=== PATIENT | female | born 1975 | race Caucasian/White ===

== ENCOUNTER 2017-05-03 21:34 | Emergency (ER) | payer OTHER ==
[~2017-05-03] VITALS: Ht 162.6 cm; Wt 75.0 kg
[2017-05-03 21:35] VITALS: BP 136/67; PULSE 94; RESP 16; TEMP 98.5; O2SAT 98
[2017-05-03] MEDS ORDERED: LORA-392 PO (21:49)
[2017-05-03] MEDS ORDERED: AMBI5TAB PO (21:49)
--- NOTE | 2017-05-03 21:49 | PD ---
Physical Exam Date Seen by Provider: May 03, 2017 Time Seen by Provider: 21:46 Narrative 42-year-old white female presents to emergency department for evaluation of left adnexal pain. Patient states that she is unsure whether she is having ovarian cyst. Patient's had a history of a right ectopic with a right salpingo-oophorectomy. Patient states the pain is moderate to moderate-to -severe. There is no alleviating or exacerbating activities. No vaginal discharge. Last menstrual periods started yesterday. Vital signs reviewed. Pt waiting for bed placement. Data Data Last Documented VS Vital Signs Date Time Temp Pulse Resp B/P (MAP) Pulse Ox O2 Delivery O2 Flow Rate FiO2 05/03/17 21:35 98.5 94 16 136/67 (90) 98 Room Air [facility] Medical Record Reviewed: No Supervised Visit with IVAN: Madhav Pichardo May 03, 2017 21:49
--- NOTE | 2017-05-03 22:29 | PD ---
HPI Chief Complaint: Rv Repair Technician Problem/Complaint Time Seen by Provider: 22:34 Travel History International Travel<30 days: No Contact w/Intl Traveler<30days: No Traveled to known affect area: No History of Present Illness HPI C/O LEFT ADNEXAL REGION PAIN FOR 12HRS OR SO, 02/10, NONRADIATING, GIVES H/O A PRIOR ECTOPIC ON RIGHT SIDE WITH SALPINGECTOMY. PATIENT HAS NO ALLEVIATING/ AGGRAVATING FACTORS. ALSO DENIES ASSOC SYMPTOMS SUCH QUINTERO/CP/N/V/D/FEVER/COUGH/ RUNNY NOSE/NO URINARY. CHART AND RN NOTES REVIEWED PMHX: DENIES PSHX: RIGHT ECTOPIC WITH SALPINGECTOMY DUE TO RUPTURED ECTOPIC PFSH Past Medical History ?: Not LMP: CURRENT Social History Tobacco Use: No Allergies-Medications (Allergen,Severity, Reaction): Coded Allergies: ciprofloxacin (Verified Allergy, Severe, "KIDNEY FAILURE", 05/03/17) Reported Meds & Prescriptions Reported Meds & Active Scripts Active Fioricet-Codeine (Zciabhytad-Qxjbcupeubuso-Ymazghou-Codeine) 89-187-23-30 Mg Cap 1-2 Cap PO Q4H PRN Do not exceed 6 capsules/day. Reported Ativan (Lorazepam) 0.5 Mg Tab 0.5 Mg PO DAILY PRN Ambien (Zolpidem Tartrate) 5 Mg Tab 5 Mg PO HS PRN Review of Systems Except as stated in HPI: all other systems reviewed are Neg General / Constitutional: No: Fever Eyes: No: Visual changes HENT: No: Headaches Cardiovascular: No: Chest Pain or Discomfort Respiratory: No: Shortness of Breath Gastrointestinal: No: Abdominal Pain Genitourinary: Positive: Pelvic Pain Musculoskeletal: No: Pain Skin: No Rash Neurologic: No: Weakness Psychiatric: No: Depression Endocrine: No: Polydipsia Hematologic/Lymphatic: No: Easy Bruising Physical Exam Narrative GENERAL: SKIN: Warm and dry. HEAD: Atraumatic. Normocephalic. EYES: Pupils equal and round. No scleral icterus. No injection or drainage. ENT: No nasal bleeding or discharge. Mucous membranes pink and moist. NECK: Trachea midline. No JVD. CARDIOVASCULAR: Regular rate and rhythm. RESPIRATORY: No accessory muscle use. Clear to auscultation. Breath sounds equal bilaterally. GASTROINTESTINAL: Abdomen soft, non-tender, nondistended....LEFT ADNEXAL TT PERCUSSION AND PALPATION MUSCULOSKELETAL: Extremities without clubbing, cyanosis, or edema. No obvious deformities. NEUROLOGICAL: Awake and alert. No obvious cranial nerve deficits. Motor grossly within normal limits. Five out of 5 muscle strength in the arms and legs. Normal speech. PSYCHIATRIC: Appropriate mood and affect; insight and judgment normal. Data Data Last Documented VS Vital Signs Date Time Temp Pulse Resp B/P (MAP) Pulse Ox O2 Delivery O2 Flow Rate FiO2 05/04/17 01:48 18 05/04/17 01:34 75 05/04/17 01:34 05/03/17 21:35 98.5 98 Room Air Orders Orders Complete Blood Count With Diff (05/03/17 22:34) Comprehensive Metabolic Panel (05/03/17 22:34) Urinalysis - C+S If Indicated (05/03/17 22:34) Ed Urine Pregnancytest Poc (05/03/17 22:34) Ct Abd/Pel W/O Iv Contrast (05/03/17 22:34) Ecg Monitoring (05/03/17 22:34) Iv Access Insert/Monitor (05/03/17 22:34) Morphine Inj (Morphine Inj) (05/03/17 22:45) Ondansetron Inj (Zofran Inj) (05/03/17 22:45) Sodium Chlor 0.9% 1000 Ml Inj (Ns 1000 M (05/03/17 22:34) Us Pelvis Comp W Transvaginal (05/03/17 23:47) Ed Discharge Order (05/04/17 01:02) Ketorolac Inj (Toradol Inj) (05/04/17 01:15) Labs Laboratory Tests Test 05/03/17 23:06 White Blood Count 5.6 TH/MM3 Red Blood Count 4.67 MIL/MM3 Hemoglobin 11.4 GM/DL Hematocrit 35.5 % Mean Corpuscular Volume 76.1 FL Mean Corpuscular Hemoglobin 24.5 PG Mean Corpuscular Hemoglobin Concent 32.2 % Red Cell Distribution Width 16.1 % Platelet Count 184 TH/MM3 Mean Platelet Volume 9.1 FL Neutrophils (%) (Auto) 75.2 % Lymphocytes (%) (Auto) 17.6 % Monocytes (%) (Auto) 6.5 % Eosinophils (%) (Auto) 0.6 % Basophils (%) (Auto) 0.1 % Neutrophils # (Auto) 4.2 TH/MM3 Lymphocytes # (Auto) 1.0 TH/MM3 Monocytes # (Auto) 0.4 TH/MM3 Eosinophils # (Auto) 0.0 TH/MM3 Basophils # (Auto) 0.0 TH/MM3 CBC Comment DIFF FINAL Differential Comment Urine Color YELLOW Urine Turbidity HAZY Urine pH 5.0 Urine Specific [place] 1.032 Urine Protein TRACE mg/dL Urine Glucose (UA) NEG mg/dL Urine Ketones NEG mg/dL Urine Occult Blood MOD Urine Nitrite NEG Urine Bilirubin NEG Urine Urobilinogen LESS THAN 2.0 MG/DL Urine Leukocyte Esterase TRACE Urine RBC 3 /hpf Urine WBC 3 /hpf Urine Squamous Epithelial Cells 2 /hpf Urine Calcium Oxalate Crystals FEW /hpf Urine Amorphous Sediment RARE Urine Mucus FEW /lpf Microscopic Urinalysis Comment CULT NOT INDICATED Blood Urea Nitrogen 13 MG/DL Creatinine 0.59 MG/DL Random Glucose 90 MG/DL Total Protein 7.1 GM/DL Albumin 4.1 GM/DL Calcium Level 9.0 MG/DL Alkaline Phosphatase 97 U/L Aspartate Amino Transf (AST/SGOT) 15 U/L Alanine Aminotransferase (ALT/SGPT) 27 U/L Total Bilirubin 0.8 MG/DL Sodium Level 138 MEQ/L Potassium Level 3.7 MEQ/L Chloride Level 105 MEQ/L Carbon Dioxide Level 26.6 MEQ/L Anion Gap 6 MEQ/L Estimat Glomerular Filtration Rate 112 ML/MIN [facility] Medical Decision Making Medical Screen Exam Complete: Yes Emergency Medical Condition: Yes Medical Record Reviewed: Yes Differential Diagnosis OVARIAN CYST V ECTOPIC V OVARIAN TORSION V COLITIS V KIDNEY STONES V DIVERTIC Narrative Course CT IS NEG FOR ANY COLITIS/DIVERTIC, POSITIVE FOR OVARIAN CYST AND NEG FOR KIDNEY STONES, NEG , PATIENT'S ULTRASOUND DID NOT SHOW E/O OVARIAN TORSION/TOA Diagnosis Primary Impression: Left ovarian cyst Additional Instructions: THE PAIN MEIDCATION SHOULD SAY PRN PAIN NOT JUST HEADACHE, IT IS A BUILT IN AUTOMATIC STATEMENT. PLEASE FOLLOW UP WITH YOUR OBGYN FOR FURTHER MEDICAL CARE Scripts Oirnriyqox-Uaithyamxegii-Jmgackqe-Codeine (Fioricet-Codeine) 29-304-61-30 Mg Cap 1-2 CAP PO Q4H Y for HEADACHE, #15 CAP 0 Refills Do not exceed 6 capsules/day. Prov: Lewis Oliva MD 05/04/17 Disposition: 01 DISCHARGE HOME Condition: Stable Lewis Oliva MD May 03, 2017 22:29
[2017-05-03] MEDS ORDERED: SODIUM CHLOR 0.9% 1000 ML INJ 1,000 ML IV ONE (22:34)
[2017-05-03] MEDS ORDERED: MORPHINE SULFATE 4 MG/ML INJ IV PUSH ONE (22:45)
[2017-05-03] MEDS ORDERED: ONDANSETRON HCL 4 MG/2 ML VIAL IV PUSH ONE (22:45)
[2017-05-03 23:47] LABS: AUTOMATED NEUTROPHIL # 4.2 TH/MM3 (1.8-7.7); BASOPHIL % 0.1 % (0.0-2.0); EOSINOPHIL % 0.6 % (0.0-4.0); HEMATOCRIT 35.5 % (35.0-46.0); HEMO FLAGS DIFF FINAL; LYMPH % 17.6 % (9.0-44.0); MEAN CELL VOLUME 76.1 FL (80.0-100.0); MEAN CORPUSCULAR HEMOGLOBIN 24.5 PG (27.0-34.0); MEAN CORPUSCULAR HGB CONC 32.2 % (32.0-36.0); MONO % 6.5 % (0.0-8.0); NEUT % 75.2 % (16.0-70.0); PLATELET COUNT 184 TH/MM3 (150-450); RED BLOOD COUNT 4.67 MIL/MM3 (4.00-5.30); RED CELL DISTRIBUTION WIDTH 16.1 % (11.6-17.2); WHITE BLOOD COUNT 5.6 TH/MM3 (4.0-11.0)
[2017-05-03 23:48] LABS: BLOOD, URINE MOD (NEG); CALCIUM OXALATE CRYSTALS,URINE FEW /hpf; COMMENT (UR) CULT NOT INDICATED; CULTURE IF INDICATED CULT NOT INDICATED; GLUCOSE,URINE NEG (NEG); KETONE, URINE NEG (NEG); MUCUS URINE FEW /lpf (OCC); NITRITE,URINE NEG (NEG); SQUAMOUS EPITHELIAL CELL URINE 2 /hpf (0-5); URINE COLOR YELLOW (YELLW/STRAW)
[2017-05-03 23:59] LABS: ANION GAP 6 MEQ/L (5-15); AST (GOT) 15 U/L (15-37); BICARBONATE 26.6 MEQ/L (21.0-32.0); BLOOD UREA NITROGEN 13 MG/DL (7-18); CHLORIDE 105 MEQ/L (98-107); GLOMERULAR FILTRATION RATE 112 ML/MIN (>89); POTASSIUM 3.7 MEQ/L (3.5-5.1); SODIUM (NA) 138 MEQ/L (136-145)
[2017-05-04] LABS: ALT (GPT) 27 U/L (10-53)
[2017-05-04 00:02] LABS: ALKALINE PHOSPHATASE 97 U/L (45-117); TOTAL BILIRUBIN ADULT 0.8 MG/DL (0.2-1.0)
--- NOTE | 2017-05-04 00:03 | RADRPT ---
EXAM DATE/TIME: 05/03/2017 23:31 [facility] COMPARISON: No previous studies available for comparison. INDICATIONS : Pelvic pain. ORAL CONTRAST: No oral contrast ingested. RADIATION DOSE: 15.32 CTDIvol (mGy) MEDICAL HISTORY : Ovarian cysts. SURGICAL HISTORY : None. ENCOUNTER: Initial ACUITY: 1 day PAIN SCALE: 8/10 LOCATION: pelvis TECHNIQUE: Volumetric scanning of the abdomen and pelvis was performed. Using automated exposure control and ad justment of the mA and/or kV according to patient size, radiation dose was kept as low as reasonably achievable to obtain optimal diagnostic quality images. DICOM format image data is available electro nically for review and comparison. FINDINGS: LOWER LUNGS: The visualized lower lungs are clear. LIVER: There is moderate heterogeneously diminished density in the liver which is likely steatosis. Areas of sparing are present adjacent to the gallbladder fossa. There are a couple of rounded circumscribed a reas of relative hyperattenuation in the dome of the liver measuring 2.9 and 1.2 cm respectively. The se may also be areas of focal fatty sparing, however the location and configuration is atypical. Mass should be considered. There is no evidence of biliary ductal dilatation. SPLEEN: Normal size without lesion. PANCREAS: Within normal limits. KIDNEYS: Normal in size and shape. There is no mass, stone, or hydronephrosis. ADRENAL GLANDS: Within normal limits. VASCULAR: There is no aortic aneurysm. BOWEL/MESENTERY: The stomach, small bowel, and colon demonstrate no acute abnormality. There is no free intraperitone al air or fluid. ABDOMINAL WALL: Within normal limits. RETROPERITONEUM: There is no lymphadenopathy. BLADDER: No wall thickening or mass. REPRODUCTIVE: 2.6 cm left ovarian cyst. No suspicious mass. No free pelvic fluid. INGUINAL: There is no lymphadenopathy or hernia. MUSCULOSKELETAL: Within normal limits for patient age. CONCLUSION: Circumscribed hyper attenuating lesions in the dome of the liver worrisome for masses. Further charac terization with contrasted hepatic MRI is suggested on an outpatient followup basis. Small left ovarian cyst. Zeke Hannon MD on May 03, 2017 at 23:52 Board Certified Radiologist. This report was verified electronically.
[2017-05-04] MEDS ORDERED: BUTA1CAP2 PO (00:34)
--- NOTE | 2017-05-04 00:57 | RADRPT ---
EXAM DATE/TIME: 05/04/2017 00:17 [facility] COMPARISON: CT ABDOMEN & PELVIS W/O CONTRAST, May 03, 2017, 23:31. INDICATIONS : Pelvic pain. MEDICAL HISTORY : Ovarian cysts. SURGICAL HISTORY : Right salpingo-oophorectomy. ENCOUNTER: Initial ACUITY: 1 day PAIN SCORE: 8/10 LOCATION: Bilateral pelvis MEASUREMENTS: UTERUS: 7.4 x 5.2 x 3.8 cm ENDOMETRIAL STRIPE: 5 mm RIGHT OVARY: SURGICALLY ABSENT cm Surgically absent LEFT OVARY: 2.1 x 1.7 x 2.2 cm FINDINGS: UTERUS: The myometrium has homogeneous echotexture without mass. RIGHT OVARY: Surgically absent LEFT OVARY: Slightly greater than 1 cm simple appearing cyst. No suspicious findings. MISCELLANEOUS: No free fluid. CONCLUSION: Unremarkable sonographic appearance of the pelvis. Zeke Hannon MD on May 04, 2017 at 0:52 Board Certified Radiologist. This report was verified electronically.
[2017-05-04] MEDS ORDERED: KETOROLAC TROMETHAMINE 30 MG/ML (IVP) VIAL IV PUSH ONE (01:15)
[2017-05-04 01:48] VITALS: RESP 18
== END 2017-05-04 01:49 | disposition home or self-care (01) ==
LOC: NEPD 21:34
DX: N83.202 Unspecified ovarian cyst, left side (principal)
CPT/HCPCS: 74176; 76830; 76856; 80053; 81001; 84703; 85025; 96361; 96374; 96375; 99285; J1885; J2270; J2405; J7030

== ENCOUNTER 2017-05-15 10:25 | Emergency (ER) | payer OTHER ==
[~2017-05-15] VITALS: Ht 160 cm; Wt 78.0 kg
[~2017-05-15 10:25] MED LIST: AMBI5TAB PO; BUTA1CAP2 PO; LORA-392 PO
[2017-05-15 10:27] VITALS: BP 118/78; PULSE 100; RESP 16; TEMP 98.1; O2SAT 98
[2017-05-15] MEDS ORDERED: SODIUM CHLOR 0.9% 1000 ML INJ 1,000 ML IV ONE (10:45)
[2017-05-15] MEDS ORDERED: SODIUM CHLORIDE 0.9% FLUSH 10 ML FLUSH IVF PRN (10:45)
[2017-05-15] MEDS ORDERED: MORPHINE SULFATE 4 MG/ML INJ IV PUSH ONE (10:45)
[2017-05-15] MEDS ORDERED: ONDANSETRON HCL 4 MG/2 ML VIAL IV PUSH ONE (10:45)
--- NOTE | 2017-05-15 10:53 | PD ---
HPI Chief Complaint: GI Complaint Time Seen by Provider: 10:34 Travel History International Travel<30 days: No Contact w/Intl Traveler<30days: No Traveled to known affect area: No History of Present Illness HPI The patient is a 42-year-old female who presents to the emergency department for diarrhea. The patient states she was recently diagnosed with a left adnexal cyst and possible tumors on her liver. The patient had an outpatient MRI which revealed hemangiomas. The patient states she also had blood work and a urine performed which revealed a UTI. The patient was placed on Augmentin and then developed increasing diarrhea. The patient has had intermittent diarrhea over the last several weeks, however, after she was placed on Augmentin the diarrhea progressed. The patient was then changed to Macrobid after 3 days of Augmentin therapy, however, states she is had approximately 30 episodes of diarrhea since last night. The patient describes the diarrhea as loose, watery, with yellow complexion, no visible blood. The patient denies any recent international travel,, history of HIV, history of cryptosporidium, or history of C. difficile. Symptoms are moderate without any alleviating or exacerbating factors. She does complain of diffuse abdominal pain and cramping but denies any associated nausea or vomiting. The patient states she had a temperature of 100.3 last night. Patient took Tylenol for her fever. PFSH Past Medical History ?: Not LMP: 2 WEEKS AGO Past Surgical History Section: Yes (x2) Tonsillectomy: Yes Social History Alcohol Use: No Tobacco Use: No Substance Use: No Allergies-Medications (Allergen,Severity, Reaction): Coded Allergies: ciprofloxacin (Verified Allergy, Severe, "KIDNEY FAILURE", 05/03/17) Reported Meds & Prescriptions Reported Meds & Active Scripts Active Fioricet-Codeine (Khrxrkxail-Zevexqmkjoyod-Xsnhsded-Codeine) 19-847-04-30 Mg Cap 1-2 Cap PO Q4H PRN Do not exceed 6 capsules/day. Reported Ativan (Lorazepam) 0.5 Mg Tab 0.5 Mg PO DAILY PRN Ambien (Zolpidem Tartrate) 5 Mg Tab 5 Mg PO HS PRN Review of Systems Except as stated in HPI: all other systems reviewed are Neg General / Constitutional: Positive: Fever HENT: No: Lightheadedness Cardiovascular: No: Chest Pain or Discomfort Respiratory: No: Shortness of Breath Gastrointestinal: Positive: Diarrhea, Abdominal Pain, Changes in Bowel Habits, No: Nausea, Vomiting Musculoskeletal: No: Weakness Neurologic: No: Dizziness Physical Exam Narrative GENERAL: Awake, alert, pleasant 42-year-old female who appears her stated age and is in no acute respiratory distress. SKIN: Focused skin assessment warm/dry. HEAD: Atraumatic. Normocephalic. EYES: Pupils equal and round. No scleral icterus. No injection or drainage. ENT: No nasal bleeding or discharge. Slightly dry mucous membranes. NECK: Trachea midline. No JVD. CARDIOVASCULAR: Regular rate and rhythm. No murmur appreciated. Heart rate in the 90s. RESPIRATORY: No accessory muscle use. Clear to auscultation. Breath sounds equal bilaterally. GASTROINTESTINAL: Abdomen soft, mild diffuse tenderness but no guarding or rigidity. MUSCULOSKELETAL: No obvious deformities. No clubbing. No cyanosis. No edema. NEUROLOGICAL: Awake and alert. No obvious cranial nerve deficits. Motor grossly within normal limits. Normal speech. PSYCHIATRIC: Appropriate mood and affect; insight and judgment normal. Data Data Last Documented VS Vital Signs Date Time Temp Pulse Resp B/P (MAP) Pulse Ox O2 Delivery O2 Flow Rate FiO2 05/15/17 12:10 64 18 118/59 (78) 98 Room Air 05/15/17 10:27 98.1 Orders Orders Complete Blood Count With Diff (05/15/17 10:45) Comprehensive Metabolic Panel (05/15/17 10:45) Urinalysis - C+S If Indicated (05/15/17 10:45) Lipase (05/15/17 10:45) Ct Abd/Pel W/O Iv Contrast (05/15/17 ) Iv Access Insert/Monitor (05/15/17 10:45) Ecg Monitoring (05/15/17 10:45) Oximetry (05/15/17 10:45) Morphine Inj (Morphine Inj) (05/15/17 10:45) Ondansetron Inj (Zofran Inj) (05/15/17 10:45) Sodium Chlor 0.9% 1000 Ml Inj (Ns 1000 M (05/15/17 10:45) Sodium Chloride 0.9% Flush (Ns Flush) (05/15/17 10:45) C Diff Toxin Pcr (05/15/17 10:45) Enteric Path (Stool) (05/15/17 10:45) Dicyclomine (Bentyl) (05/15/17 11:00) Labs Laboratory Tests Test 05/15/17 11:00 05/15/17 11:45 White Blood Count 5.6 TH/MM3 Red Blood Count 5.15 MIL/MM3 Hemoglobin 12.4 GM/DL Hematocrit 38.5 % Mean Corpuscular Volume 74.8 FL Mean Corpuscular Hemoglobin 24.1 PG Mean Corpuscular Hemoglobin Concent 32.3 % Red Cell Distribution Width 16.6 % Platelet Count 195 TH/MM3 Mean Platelet Volume 8.6 FL Neutrophils (%) (Auto) 81.3 % Lymphocytes (%) (Auto) 11.8 % Monocytes (%) (Auto) 6.6 % Eosinophils (%) (Auto) 0.0 % Basophils (%) (Auto) 0.3 % Neutrophils # (Auto) 4.6 TH/MM3 Lymphocytes # (Auto) 0.7 TH/MM3 Monocytes # (Auto) 0.4 TH/MM3 Eosinophils # (Auto) 0.0 TH/MM3 Basophils # (Auto) 0.0 TH/MM3 CBC Comment DIFF FINAL Differential Comment Blood Urea Nitrogen 12 MG/DL Creatinine 0.70 MG/DL Random Glucose 96 MG/DL Total Protein 7.6 GM/DL Albumin 4.0 GM/DL Calcium Level 8.9 MG/DL Alkaline Phosphatase 103 U/L Aspartate Amino Transf (AST/SGOT) 32 U/L Alanine Aminotransferase (ALT/SGPT) 31 U/L Total Bilirubin 0.8 MG/DL Sodium Level 137 MEQ/L Potassium Level 4.2 MEQ/L Chloride Level 107 MEQ/L Carbon Dioxide Level 23.3 MEQ/L Anion Gap 7 MEQ/L Estimat Glomerular Filtration Rate 92 ML/MIN Lipase 143 U/L Urine Color YELLOW Urine Turbidity HAZY Urine pH 5.5 Urine Specific [place] 1.018 Urine Protein TRACE mg/dL Urine Glucose (UA) NEG mg/dL Urine Ketones NEG mg/dL Urine Occult Blood SMALL Urine Nitrite NEG Urine Bilirubin NEG Urine Urobilinogen LESS THAN 2.0 MG/DL Urine Leukocyte Esterase MOD Urine RBC 1 /hpf Urine WBC 3 /hpf Urine Squamous Epithelial Cells 20 /hpf Urine Bacteria FEW /hpf Urine Mucus FEW /lpf Microscopic Urinalysis Comment CULT NOT INDICATED MDM Medical Decision Making Medical Screen Exam Complete: Yes Emergency Medical Condition: Yes Medical Record Reviewed: Yes Interpretation(s) Laboratory Tests Test 05/15/17 11:00 05/15/17 11:45 White Blood Count 5.6 TH/MM3 Red Blood Count 5.15 MIL/MM3 Hemoglobin 12.4 GM/DL Hematocrit 38.5 % Mean Corpuscular Volume 74.8 FL Mean Corpuscular Hemoglobin 24.1 PG Mean Corpuscular Hemoglobin Concent 32.3 % Red Cell Distribution Width 16.6 % Platelet Count 195 TH/MM3 Mean Platelet Volume 8.6 FL Neutrophils (%) (Auto) 81.3 % Lymphocytes (%) (Auto) 11.8 % Monocytes (%) (Auto) 6.6 % Eosinophils (%) (Auto) 0.0 % Basophils (%) (Auto) 0.3 % Neutrophils # (Auto) 4.6 TH/MM3 Lymphocytes # (Auto) 0.7 TH/MM3 Monocytes # (Auto) 0.4 TH/MM3 Eosinophils # (Auto) 0.0 TH/MM3 Basophils # (Auto) 0.0 TH/MM3 CBC Comment DIFF FINAL Differential Comment Blood Urea Nitrogen 12 MG/DL Creatinine 0.70 MG/DL Random Glucose 96 MG/DL Total Protein 7.6 GM/DL Albumin 4.0 GM/DL Calcium Level 8.9 MG/DL Alkaline Phosphatase 103 U/L Aspartate Amino Transf (AST/SGOT) 32 U/L Alanine Aminotransferase (ALT/SGPT) 31 U/L Total Bilirubin 0.8 MG/DL Sodium Level 137 MEQ/L Potassium Level 4.2 MEQ/L Chloride Level 107 MEQ/L Carbon Dioxide Level 23.3 MEQ/L Anion Gap 7 MEQ/L Estimat Glomerular Filtration Rate 92 ML/MIN Lipase 143 U/L Urine Color YELLOW Urine Turbidity HAZY Urine pH 5.5 Urine Specific [place] 1.018 Urine Protein TRACE mg/dL Urine Glucose (UA) NEG mg/dL Urine Ketones NEG mg/dL Urine Occult Blood SMALL Urine Nitrite NEG Urine Bilirubin NEG Urine Urobilinogen LESS THAN 2.0 MG/DL Urine Leukocyte Esterase MOD Urine RBC 1 /hpf Urine WBC 3 /hpf Urine Squamous Epithelial Cells 20 /hpf Urine Bacteria FEW /hpf Urine Mucus FEW /lpf Microscopic Urinalysis Comment CULT NOT INDICATED CT of the abdomen and pelvis reveals no acute process or interval change. Hepatic steatosis. Right hepatic lobe masses likely representing hemangiomas, however, further characterization with outpatient MRI is again recommended. Differential Diagnosis Differential diagnosis includes infectious diarrhea, inflammatory diarrhea, IBD , IBS, C. difficile, medication side effect, dehydration, electrolyte abnormality. Narrative Course IV was established, labs are drawn and sent, and the patient was placed on cardiac telemetry monitoring and continuous pulse oximetry monitoring. The patient was administer morphine, Bentyl, Zofran, and IV fluids. C. difficile and stool studies were ordered. Repeat UA will be obtained to evaluate if the patient needs antibiotics for underlying UTI. Laboratory evaluation is unremarkable, white count is normal. LFTs and lipase are within normal limits. CT the abdomen and pelvis reveals no acute process or interval change, no evidence of colitis. CT does recommend outpatient MRI for right hepatic lobe masses, the patient states she had an MRI which revealed for hemangioma's. C. difficile was sent to lab. I do discussion with the patient regarding waiting for the C. difficile results versus going home. She would prefer to go home, I will write for Flagyl 3 times a day for 10 days and call her if the C. difficile is positive. The patient will be prescribed Bentyl for the cramping. She does have a history of IBS that his diarrhea related, however, states her IBS has been controlled in the last several years and she thinks that this diarrhea is different than her normal IBS. She is advised to follow-up with gastroenterology if symptoms persist for possible outpatient colonoscopy. Diagnosis Primary Impression: Diarrhea Qualified Codes: R19.7 - Diarrhea, unspecified Patient Instructions: General Instructions Additional Instructions: Please provide a patient a copy of her CT results and lab results at discharge. Medications as directed. Follow-up with your primary physician. Return if symptoms worsen or progress. Med/Other Pt SpecificInfo: Prescription(s) given Scripts Metronidazole (Flagyl) 500 Mg Tab 500 MG PO TID for Infection, #30 TAB 0 Refills Prov: Dash Feliciano MD 05/15/17 Dicyclomine (Bentyl) 10 Mg Cap 10 MG PO QID for Bowel Management, #20 CAP 0 Refills Prov: Dash Feliciano MD 05/15/17 Disposition: 01 DISCHARGE HOME Condition: Stable Dash Feliciano MD May 15, 2017 10:53
[2017-05-15] MEDS ORDERED: DICYCLOMINE HCL 10 MG CAP PO ONE (11:00)
[2017-05-15 11:10] VITALS: O2SAT 98
[2017-05-15 11:13] LABS: AUTOMATED NEUTROPHIL # 4.6 TH/MM3 (1.8-7.7); BASOPHIL % 0.3 % (0.0-2.0); HEMATOCRIT 38.5 % (35.0-46.0); HEMO FLAGS DIFF FINAL; LYMPH % 11.8 % (9.0-44.0); LYMPHOCYTE # 0.7 TH/MM3 (1.0-4.8); MEAN CELL VOLUME 74.8 FL (80.0-100.0); MEAN CORPUSCULAR HEMOGLOBIN 24.1 PG (27.0-34.0); MEAN CORPUSCULAR HGB CONC 32.3 % (32.0-36.0); MONO % 6.6 % (0.0-8.0); NEUT % 81.3 % (16.0-70.0); PLATELET COUNT 195 TH/MM3 (150-450); RED BLOOD COUNT 5.15 MIL/MM3 (4.00-5.30); RED CELL DISTRIBUTION WIDTH 16.6 % (11.6-17.2); WHITE BLOOD COUNT 5.6 TH/MM3 (4.0-11.0)
[2017-05-15 11:37] LABS: ALKALINE PHOSPHATASE 103 U/L (45-117); TOTAL BILIRUBIN ADULT 0.8 MG/DL (0.2-1.0)
[2017-05-15 11:39] LABS: ALT (GPT) 31 U/L (10-53); ANION GAP 7 MEQ/L (5-15); AST (GOT) 32 U/L (15-37); BICARBONATE 23.3 MEQ/L (21.0-32.0); BLOOD UREA NITROGEN 12 MG/DL (7-18); CHLORIDE 107 MEQ/L (98-107); GLOMERULAR FILTRATION RATE 92 ML/MIN (>89); POTASSIUM 4.2 MEQ/L (3.5-5.1); SODIUM (NA) 137 MEQ/L (136-145)
[2017-05-15 12:10] VITALS: BP 118/59; PULSE 64; RESP 18; O2SAT 98
[2017-05-15 12:13] LABS: BACTERIA, URINE FEW /hpf; BLOOD, URINE SMALL (NEG); COMMENT (UR) CULT NOT INDICATED; CULTURE IF INDICATED CULT NOT INDICATED; GLUCOSE,URINE NEG (NEG); KETONE, URINE NEG (NEG); MUCUS URINE FEW /lpf (OCC); NITRITE,URINE NEG (NEG); PH, URINE 5.5 (5.0-8.5); SQUAMOUS EPITHELIAL CELL URINE 20 /hpf (0-5); URINE COLOR YELLOW (YELLW/STRAW)
--- NOTE | 2017-05-15 12:16 | RADRPT ---
EXAM DATE/TIME: 05/15/2017 11:27 [facility] COMPARISON: CT ABDOMEN & PELVIS W/O CONTRAST, May 03, 2017, 23:31. INDICATIONS : Abdominal pain. Diarrhea. ORAL CONTRAST: No oral contrast ingested. RADIATION DOSE: 8.52 CTDIvol (mGy) MEDICAL HISTORY : Known hemangioma SURGICAL HISTORY : C section ENCOUNTER: Initial ACUITY: 1 day PAIN SCALE: 7/10 LOCATION: abdominal TECHNIQUE: Volumetric scanning of the abdomen and pelvis was performed. Using automated exposure control and ad justment of the mA and/or kV according to patient size, radiation dose was kept as low as reasonably achievable to obtain optimal diagnostic quality images. DICOM format image data is available electro nically for review and comparison. FINDINGS: LOWER LUNGS: The visualized lower lungs are clear. LIVER: The liver is diffusely hypodense. Previously described masses just be the dome of the diaphragm are s table. There is no dilation of the biliary tree. No calcified gallstones. SPLEEN: Normal size without lesion. PANCREAS: Within normal limits. KIDNEYS: Normal in size and shape. There is no mass, stone, or hydronephrosis. ADRENAL GLANDS: Within normal limits. VASCULAR: There is no aortic aneurysm. BOWEL/MESENTERY: The stomach, small bowel, and colon demonstrate no acute abnormality. There is no free intraperitone al air or fluid. ABDOMINAL WALL: Within normal limits. RETROPERITONEUM: There is no lymphadenopathy. BLADDER: No wall thickening or mass. REPRODUCTIVE: Within normal limits. INGUINAL: There is no lymphadenopathy or hernia. MUSCULOSKELETAL: Within normal limits for patient age. CONCLUSION: 1. No acute process or interval change. 2. Hepatic steatosis 3. Right hepatic lobe masses likely representing hemangiomas however further characterization with ou tpatient MRI is again recommended. Best Haque MD on May 15, 2017 at 12:10 Board Certified Radiologist. This report was verified electronically.
[2017-05-15] MEDS ORDERED: DICY10 PO (12:30)
[2017-05-15] MEDS ORDERED: METR-1 PO (12:30)
[2017-05-15 12:35] VITALS: BP 116/82
[2017-05-15 13:56] LABS: C. DIFF EPI 027 PRESUMPTIVE NEGATIVE (NEGATIVE)
== END 2017-05-15 13:14 | disposition home or self-care (01) ==
LOC: NEPC 10:25
DX: R19.7 Diarrhea, unspecified (principal); R10.84 Generalized abdominal pain; R50.9 Fever, unspecified; Z87.19 Personal history of other diseases of the digestive system
CPT/HCPCS: 74176; 80053; 81001; 83690; 85025; 87493; 87506; 96361; 96374; 96375; 99285; J2270; J2405; J7030